=== PATIENT | female | born 1995 | race Caucasian/White ===

== ENCOUNTER → 2021-06-05 12:30 | Observation (INO) ==
[2021-06-05 11:48] LABS: Bacteria,Urine Few per hpf (None-Few); Bilirubin,Urine Negative (Negative); Blood,Urine Negative (Negative); Clarity,Urine Turbid (Clear); Color,Urine Colorless (Yellow); Glucose,Urine (UA) Normal (Normal); Ketones,Urine Negative (Negative); Leukocyte Esterase,Urine Moderate (Negative); Nitrite,Urine Negative (Negative); Protein,Urine Negative (Neg-Trace); Specific Gravity,Urine < 1.005 (1.010-1.025); Squamous Epithelial Cell,Urine Moderate per hpf (None-Few); Urobilinogen,Urine Normal (Normal)
[2021-06-05 13:29] LABS: Candida DNA Not Detected (Not Detect); Gardnerella DNA DETECTED (Not Detect); Trichomonas DNA Not Detected (Not Detect)
== END | disposition home or self-care (01) ==
LOC: 1NENULAB
PROVIDERS: ADMIT Obstetrics & Gynecology; ATTEND Obstetrics & Gynecology

== ENCOUNTER 2021-07-16 04:00 | Inpatient (IN) ==
[2021-07-16] MEDS ORDERED: Azithromycin 500 MG in 0.9 % Sodium Chloride 250 ML IVPB PRN (04:11)
[2021-07-16] MEDS ORDERED: Lidocaine 1% 20 ML MDV INFILT PRN (04:11)
[2021-07-16] MEDS ORDERED: Naloxone 0.4 MG/ML INJ IVP PRN (04:11)
[2021-07-16] MEDS ORDERED: Famotidine 20 MG/2 ML VIAL IVP PRN (04:11)
[2021-07-16] MEDS ORDERED: Metoclopramide 10 MG/2 ML VIAL IVP PRN (04:11)
[2021-07-16] MEDS ORDERED: *HR* Nalbuphine 10 MG/ML AMPUL IV PRN (04:11)
[2021-07-16] MEDS ORDERED: Ondansetron 4 MG/2 ML VIAL IVP PRN (04:11)
[2021-07-16] MEDS ORDERED: miSOPROStoL 25 MCG TABLET PO PRN (04:26)
[2021-07-16] MEDS: Ringers Solution, Lactated 1,000 ML IVC SCH ×3 (04:36→13:49)
[2021-07-16] MEDS ORDERED: Penicillin G Potassium 5,000,000 UNIT in 0.9 % Sodium Chloride Mini Bag 100 ML IVPB ONE (04:48)
[2021-07-16 04:56] LABS: Basophils # 0.1 K/mcL (0.0-0.2); Basophils % 0.4 %; Eosinophils # 0.1 K/mcL (0.0-0.6); Eosinophils % 0.9 %; Hematocrit 34.2 % (35.3-44.9); Hemoglobin 11.2 g/dL (11.5-15.4); Immature Granulocytes % 2.2 % (0-4); Lymphocytes # 2.2 K/mcL (0.6-4.6); Lymphocytes % 18.5 %; Mean Corpuscular HGB Conc 32.7 g/dL (31.6-35.5); Mean Corpuscular Hemoglobin 27.9 pg (28.0-33.3); Mean Corpuscular Volume 85.3 fL (83.0-100.0); Mean Platelet Volume 12.3 fL (9.4-12.4); Monocytes # 0.9 K/mcL (0.0-1.3); Neutrophils # 8.1 K/mcL (1.6-8.9); Platelet Count 224 K/mcL (140-400); Red Blood Count 4.01 M/mcL (3.82-4.97); White Blood Count 11.6 K/mcL (4.3-11.1)
[2021-07-16 05:04] LABS: Amphetamine Screen,Urine Negative ng/mL (Cutoff=1000); Barbiturate Screen,Urine Negative ng/mL (Cutoff=200); Benzodiazepines Screen,Urine Negative ng/mL (Cutoff=200); Cannabinoid Screen,Urine Negative ng/mL (Cutoff = 50); Cocaine Screen,Urine Negative ng/mL (Cutoff= 300); Creatinine,Urine 44 mg/dL; Opiate Screen,Urine Negative ng/mL (Cutoff=300); Phencyclidine Screen,Urine Negative ng/mL (Cutoff=25); Protein/Creatinine Ratio,Urine 0.18 mg/mg (0.00-0.20)
[2021-07-16 05:15] LABS: Alanine Aminotransferase 11 Units/L (7-52); Aspartate Amino Transferase 23 Units/L (13-39); BUN/Creatinine Ratio 9 (6-26); Blood Urea Nitrogen 6 mg/dL (6-20); Lactate Dehydrogenase 164 Units/L (140-271); Uric Acid 5.2 mg/dL (2.3-7.6); eGFR For African Americans > 60 (> 60); eGFR For Non-African Americans > 60 (> 60)
[2021-07-16] MEDS ORDERED: EPHEDrine 50 MG/ML VIAL ONE (06:23)
[2021-07-16] MEDS ORDERED: *HR* FentaNYL (PF) 100 MCG/2 ML VIAL ONE ×2 (06:23→15:55)
[2021-07-16] MEDS ORDERED: *HR* Midazolam HCl 2 MG/2 ML VIAL ONE (06:23)
[2021-07-16] MEDS ORDERED: *HR* Morphine Sulfate/PF 10 MG/10 ML AMPUL ONE (06:23)
[2021-07-16] MEDS ORDERED: Ondansetron 4 MG/2 ML VIAL ONE (06:24)
[2021-07-16] MEDS ORDERED: *HR* Oxytocin 10 UNIT/ML VIAL ONE (06:25)
[2021-07-16] MEDS ORDERED: Acetaminophen IV 0 MG/0 ML BAG IVPB ONE (06:25)
[2021-07-16] MEDS ORDERED: Ketorolac 30 MG/ML VIAL ONE (06:25)
[2021-07-16] MEDS ORDERED: Ringers Solution, Lactated 1,000 ML ONE (06:26)
[2021-07-16] MEDS ORDERED: Oxytocin 20 units/ LR 1000 mL 20 UNIT/1,000 ML BAG IVC SCH ×2 (07:45→20:47)
[2021-07-16] MEDS ORDERED: *HR* FentaNYL (PF) 100 MCG/2 ML VIAL EP ONE (08:29)
[2021-07-16] MEDS ORDERED: EPHEDrine 50 MG/ML VIAL IVP PRN (08:29)
[2021-07-16] MEDS ORDERED: Ropivacaine/PF 0.2% 20 ML VIAL EP ONE (08:29)
[2021-07-16] MEDS ORDERED: Epidural Premix (fent/bupiv) 110 ML EP SCH (08:30)
[2021-07-16] MEDS: Penicillin G Potassium 2,500,000 UNIT/105 ML MLS IVPB SCH ×2 (09:03→13:49)
[2021-07-16] MEDS ORDERED: Famotidine 20 MG/2 ML VIAL IVP ONE (14:33)
[2021-07-16] MEDS ORDERED: Ropivacaine/PF 0.2% 20 ML VIAL ONE (15:55)
[2021-07-16] MEDS ORDERED: miSOPROStoL 100 MCG TABLET RC ONE (18:03)
[2021-07-16] MEDS ORDERED: Methylergonovine 0.2 MG/ML AMPUL IM ONE (18:03)
[2021-07-16] MEDS ORDERED: Ondansetron 4 MG/2 ML VIAL IVP ONE (18:53)
[2021-07-16] MEDS ORDERED: Ondansetron ODT 4 MG TAB.RAPDIS SL PRN (20:47)
[2021-07-16] MEDS ORDERED: Lanolin 7 G OINT...G. TP PRN (20:47)
[2021-07-16] MEDS ORDERED: Measles/Mumps/Rubella Vacc 0.5 ML VIAL SQ PRN (20:47)
[2021-07-16] MEDS ORDERED: Benzocaine/Menthol 56 GM AEROSOL SPRAY TP PRN (20:47)
[2021-07-16] MEDS: Acetaminophen 325 MG TABLET PO SCH (21:22)
[2021-07-16] MEDS: Ibuprofen 600 MG TABLET PO SCH (21:56)
[2021-07-17 03:21] LABS: Basophils % 0.3 %; Eosinophils % 0.1 %; Hematocrit 26.9 % (35.3-44.9); Immature Granulocytes % 0.8 % (0-4); Lymphocytes # 1.4 K/mcL (0.6-4.6); Lymphocytes % 8.9 %; Mean Corpuscular HGB Conc 34.2 g/dL (31.6-35.5); Mean Corpuscular Hemoglobin 28.6 pg (28.0-33.3); Mean Corpuscular Volume 83.5 fL (83.0-100.0); Mean Platelet Volume 12.3 fL (9.4-12.4); Monocytes % 6.3 %; Neutrophils # 12.8 K/mcL (1.6-8.9); Platelet Count 203 K/mcL (140-400); Red Blood Count 3.22 M/mcL (3.82-4.97); Red Cell Distribution Width 16.2 % (11.5-14.5); Segmented Neutrophils % 83.6 %; White Blood Count 15.3 K/mcL (4.3-11.1)
[2021-07-17 03:22] LABS: Hemoglobin 9.2 g/dL (11.5-15.4)
[2021-07-17] MEDS: Acetaminophen 325 MG TABLET PO SCH ×2 (04:05→17:40)
[2021-07-17] MEDS ORDERED: valACYclovir 500 MG TABLET PO SCH (09:00)
[2021-07-17] MEDS ORDERED: Prenatal Vit/FA 1 EACH TABLET PO SCH (09:00)
[2021-07-17 16:08] VITALS: BP 121/83; PULSE 98; TEMP 98; O2SAT 100
[2021-07-17] MEDS: Ibuprofen 600 MG TABLET PO SCH (17:40)
== END 2021-07-17 18:58 | disposition home or self-care (01) | DRG 806 ==
LOC: 1NENULAB 04:10 → 1NENUOBS 20:46
PROVIDERS: ADMIT Obstetrics & Gynecology; ATTEND Obstetrics & Gynecology